=== PATIENT | male | born 1970 | race Caucasian/White ===

== ENCOUNTER 2021-01-03 12:38 | Day surgery (SDC) | payer OTHER ==
[~2021-01-03] VITALS: Ht 205.7 cm; Wt 117.9 kg
== END 2021-01-03 14:28 | disposition home or self-care (01) ==
LOC: ORSCSDS 12:38
PROVIDERS: Internal Medicine Gastroenterology
PROC: 0DJD8ZZ Inspection of Lower Intestinal Tract, Via Natural or Artificial Opening Endoscopic (ICD-10-PCS; principal; 2021-01-03 14:00)
DX: K62.5 Hemorrhage of anus and rectum (principal); K60.2 Anal fissure, unspecified; K57.30 Diverticulosis of large intestine without perforation or abscess without bleeding; R10.9 Unspecified abdominal pain
CPT/HCPCS: J2704; J7120

== ENCOUNTER → 2021-07-18 | Outpatient (CLI) | payer OTHER | END | disposition home or self-care (01) | LOC: LAB SHORT 15:14 → LAB 15:14 | DX: L08.9 Local infection of the skin and subcutaneous tissue, unspecified (principal); M79.604 Pain in right leg | CPT/HCPCS: 87070; 87075; 87076; 87077; 87147; 87186; 87205 ==